=== PATIENT | female | born 1960 | race American Indian/Alaskan Native ===

== ENCOUNTER 2017-04-17 09:32 | Emergency (ER) | payer MEDICAID ==
--- NOTE | 2017-04-17 12:06 | Emergency Department Report ---
HPI - General Chief Complaint: Upper Respiratory Infection Time Seen by Provider: 04/17/17 11:54 - HPI HPI: Ms. Horne presents with flu-like symptoms. Patient has body aches, cough, night sweats, sore throat, chills. She has a bilateral ear pain. She has chest pain with cough. She has productive cough. She states that her chest sharpe with cough. She has decreased appetite. Patient underwent knee replacement in February. ED Past Medical Hx - Past Medical History Previous Medical History?: Yes Hx Hypertension: Yes - Surgical History Past Surgical History?: Yes Additional Surgical History: Left knee replacement- August 2016. Right knee replacement - 2016. bowel obstruction x 3. hernia repair x 4. hysterectomy. left foot surgery x 2. right foot surgery x 1 - Social History Smoking Status: Never Smoker Substance Use Type: None - Medications Home Medications: Home Medications Medication Instructions Recorded Confirmed Last Taken Type Acetaminophen/Codeine [Tylenol 2 tab PO Q6H PRN #20 tab 04/17/17 Unknown Rx /Codeine # 3 tab] ED Review of Systems ROS: Stated complaint: COLD SWEATS Other details as noted in HPI Comment: All other systems reviewed and negative Constitutional: fever, malaise. denies: weakness ENT: ear pain, throat pain Respiratory: cough Cardiovascular: chest pain Gastrointestinal: denies: abdominal pain Physical Exam - Physical Exam Vital Signs: Vital Signs 04/17/17 09:57 Temperature 99.1 F Pulse Rate 98 H Respiratory 18 Rate Blood Pressure 129/83 O2 Sat by Pulse 95 Oximetry Physical Exam: General: Well-appearing, no acute distress HEENT: Normocephalic atraumatic pupils equal round and reactive to light anicteric sclera Nose: no rhinorrhea Oropharynx: Clear mucous membranes no lesions Neck: supple, no meningismus Ears: Normal tympanic membranes, no discharge Chest: Clear to auscultation bilaterally no rales rhonchi no wheezes Cardiac: Regular rate and rhythm no murmurs no rubs no gallops Abdomen: Soft nontender nondistended positive bowel sounds no guarding Extremities: No cyanosis no clubbing no edema Neuro: Moves all extremities 4, no gross deficits Psychiatric: Alert and oriented 4 normal affect and normal judgment, normal insight ED Course Vital Signs 04/17/17 09:57 Temperature 99.1 F Pulse Rate 98 H Respiratory 18 Rate Blood Pressure 129/83 O2 Sat by Pulse 95 Oximetry ED Medical Decision Making - EKG Data -: EKG Interpreted by Me EKG shows normal: sinus rhythm, axis, intervals, QRS complexes, ST-T waves Rate: normal - EKG Data 04/17/17 12:03 56 yo female presents with clinical diagnosis of influenza. Prescription Tylenol #3 for pain and cough Critical care attestation.: If time is entered above; I have spent that time in minutes in the direct care of this critically ill patient, excluding procedure time. ED Disposition Clinical Impression: Influenza Disposition: DC-01 TO HOME OR SELFCARE Is pt being admited?: No Does the pt Need Aspirin: No Condition: Good Instructions: Influenza (ED) Prescriptions: Acetaminophen/Codeine [Tylenol /Codeine # 3 tab] 2 tab PO Q6H PRN #20 tab PRN Reason: Pain Time of Disposition: 12:06
[2017-04-17 12:35] VITALS: BP 142/78
== END 2017-04-17 12:43 | disposition home or self-care (01) ==
LOC: ED 09:32
DX: J11.1 Influenza due to unidentified influenza virus with other respiratory manifestations (principal); I10 Essential (primary) hypertension
CPT/HCPCS: 93005; 93010; 99283